=== PATIENT | female | born 1995 | race Caucasian/White ===

== ENCOUNTER 2016-09-30 18:36 | Emergency (ER) | payer OTHER ==
[2016-09-30 18:42] VITALS: TEMP 98.2
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
--- NOTE | 2016-09-30 19:32 | CPEKG ---
Heart Rate: 93 RR Interval: 645 P-R Interval: 164 QRSD Interval: 84 QT Interval: 340 QTC Interval: 423 P [place]: 70 QRS [place]: 85 T Wave [place]: 38 EKG Severity - OTHERWISE NORMAL ECG - EKG Impression: SINUS ARRHYTHMIA, RATE 71-105 Electronically Signed By: Marimar Cardenas 30-Sep-2016 21:03:34
[2016-09-30 19:42] LABS: % IMMATURE GRANULYOCYTES 0.8 % (0.0-1.1); ABSOLUTE IMMATURE GRANULOCYTES 0.05 10^3/uL (0.00-0.10); ADD DIFF? NO; ADD MORPH? NO; ADD SCAN? NO; ATYPICAL LYMPHOCYTE FLAG 10 (0-99); FRAGMENT RBC FLAG 0 (0-99); HEMATOCRIT 39.5 % (38.0-47.0); HEMOGLOBIN 13.6 g/dL (12.6-16.3); LEFT SHIFT FLG 10 (0-99); LIPEMIA HEMOLYSIS FLAG 90 (0-99); MEAN CELL HEMOGLOBIN 31.9 pg (27.9-34.1); MEAN CELL HEMOGLOBIN CONCENTR. 34.4 g/dL (32.4-36.7); MEAN CELL VOLUME 92.7 fL (81.5-99.8); MEAN PLATELET VOLUME 11.1 fL (8.7-11.7); PLATELET CLUMPS FLAG 0 (0-99); PLATELET COUNT 187 10^3/uL (150-400); RED BLOOD CELL COUNT 4.26 10^6/uL (4.18-5.33); RED CELL DISTRIBUTION WIDTH 13.2 % (11.5-15.2)
[2016-09-30] MEDS ORDERED: IBUPROFEN 600 MG TAB PO ONE (19:50)
[2016-09-30 19:57] LABS: ANION GAP 9 mEq/L (8-16); CARBON DIOXIDE 24 mEq/l (22-31); CHLORIDE 105 mEq/L (97-110); CREATININE 0.9 mg/dL (0.6-1.0); GLOMERULAR FILTRATION RATE > 60; GLUCOSE 98 mg/dL (70-100); POTASSIUM 3.9 mEq/L (3.5-5.2); SODIUM 138 mEq/L (134-144)
[2016-09-30 20:29] VITALS: BP 122/84; PULSE 84; RESP 18; O2SAT 97
== END 2016-09-30 20:59 | disposition home or self-care (01) ==
DX: R56.9 Unspecified convulsions (principal)
CPT/HCPCS: 80305